=== PATIENT | female | born 1995 | race Caucasian/White ===

== ENCOUNTER 2018-07-31 11:10 | Emergency (ER) | payer OTHER ==
[2018-07-31 11:25] VITALS: BP 112/73; PULSE 97; TEMP 98.6; BMI 18.7
--- NOTE | 2018-07-31 11:34 | PDOC ---
History of Present Illness - General Chief Complaint: Pain Stated Complaint: LEFT ABDOMINAL PAIN Time Seen by Provider: 07/31/18 11:32 - History of Present Illness Initial Comments: 07/31/18 15:04 Chief complaint: Left upper quadrant pain History of present illness: Patient is a resident of an eating disorder facility being treated for anorexia. She entered the facility 5 days ago. A routine blood test yesterday revealed an elevated lipase of 500. Today she developed left upper quadrant pain, and because of the elevated amylase, was sent for evaluation of possible pancreatitis. She states that she has had elevated pancreatic enzymes in the past without experiencing acute pancreatitis Review of systems: No nausea, vomiting, diarrhea, fever or chills, hematemesis, melena, bloody stool. No chest pain, shortness of breath, urinary tract symptoms , vaginal bleeding or discharge. Past medical history: Anorexia/bulimia for many years with one episode of hypokalemia in the distant past.. GERD, on Prevacid, but no other GI disease or surgery Social history: Denies tobacco alcohol or nonprescription drugs. Eating disorder has been present for many years Family history: Reviewed and noncontributory Physical exam: Alert oriented 3 well-developed well-nourished no acute distress cheerful and cooperative. Does not appear to be experiencing extreme abdominal pain Afebrile, vital signs normal No pallor or icterus. HEENT clear Neck supple without bruit mass or nodes Chest clear with full breath sounds bilaterally, no wheezes rales or rhonchi CV S1 and S2 normal without murmur rub or gallop pulses full and symmetric no JVD or edema no bruits regular Abdomen nondistended. Bowel sounds normal. Soft without mass or organomegaly. There is mild tenderness to deep palpation in the left upper quadrant, but no significant tenderness in the epigastrium, right upper quadrant, or lower abdomen. Neurological intact Extremities no CCE Skin clear, no rash, adequate turgor and wet mucous membranes Impression: Elevated lipase most likely due to anorexia/bulimia, no sign of acute pancreatitis. Abdominal pain is likely an exacerbation of GERD or hyperacidity/dyspepsia Plan: Labs and ultrasound. Further evaluation treatment depending on results. Past History - Past Medical History Allergies/Adverse Reactions: Allergies Allergy/AdvReac Type Severity Reaction Status Date / Time No Known Allergies Allergy Unverified 07/31/18 11:11 Home Medications: Ambulatory Orders Aripiprazole [Abilify -] 2 mg PO HS 07/31/18 Fluvoxamine Maleate [Luvox -] 200 mg PO HS 07/31/18 Lansoprazole [Prevacid] 30 mg PO DAILY 07/31/18 COPD: No GI Disorders: Yes (GERD, ANOREXIA/PURGE) Psychiatric Problems: Yes (ANXIETY DEPRESSION) - Suicide/Smoking/Psychosocial Hx Smoking History: Never smoked Information on smoking cessation initiated: No Hx Alcohol Use: No Drug/Substance Use Hx: No *Physical Exam - Vital Signs Last Vital Signs Temp Pulse Resp BP Pulse Ox 98.6 F 97 H 16 112/73 100 07/31/18 11:11 07/31/18 11:11 07/31/18 11:11 07/31/18 11:11 07/31/18 11:11 Moderate Sedation - Procedure Monitoring Vital Signs: Procedure Monitoring Vital Signs Temperature 98.6 F 07/31/18 11:11 Pulse Rate 97 H 07/31/18 11:11 Respiratory Rate 16 07/31/18 11:11 Blood Pressure 112/73 07/31/18 11:11 O2 Sat by Pulse Oximetry (%) 100 07/31/18 11:11 ED Treatment Course - LABORATORY CBC & Chemistry Diagram: 07/31/18 12:05 07/31/18 12:05 Medical Decision Making - Medical Decision Making 07/31/18 15:10 The CBC and chemistries are normal except for elevated lipase of 377. Ultrasound of the gallbladder, liver, and pancreas show no significant abnormalities Most likely etiology of the patient's pain is hyperacidity/dyspepsia. Elevated amylase is likely due to underlying eating disorder. Patient is not uncomfortable, in no acute pain at present, discharged with counselor to follow up with GI specialist as directed, or return to the emergency room if there is fever, increased pain, nausea, vomiting. *DC/Admit/Observation/Transfer Diagnosis at time of Disposition: Elevated pancreatic enzyme - Discharge Dispostion Disposition: HOME Condition at time of disposition: Stable Decision to Admit order: No - Referrals - Patient Instructions Additional Instructions: Ultrasound of the gallbladder, liver, and pancreas is normal. Pancreatitis is highly unlikely. Elevations in your pancreatic enzymes appear to be due to your underlying eating disorder. Continue your present therapy. Adequate fluids, and good nutrition. See primary physician in approximately 2 weeks for repeat lipase and abdominal examination. Return to ER if pain becomes more severe or is accompanied by nausea, intractable vomiting, or fever. The pain you're experiencing now is most likely from the stomach, either spasm or hyperacidity. It is unlikely that the pancreas is inflamed, as noted above. Continue your antacid medication as directed. If pain persists or becomes more severe, you should see photographic process screen maker for further evaluation. - Post Discharge Activity
[2018-07-31] MEDS ORDERED: SODIUM CHLORIDE 1,000 ML IV STA (11:35)
[2018-07-31 12:03] LABS: PH,URINE 8.5 (4.5-8); URINE APPEARANCE Cloudy; URINE BILIRUBIN Negative (NEGATIVE); URINE COLOR Yellow; URINE GLUCOSE (UA) Negative (NEGATIVE); URINE KETONE Negative (NEGATIVE); URINE LEUK ESTERASE Negative (NEGATIVE); URINE NITRITE Negative (NEGATIVE); URINE PROTEIN Negative (NEGATIVE); URINE UROBILINOGEN 0.2 (0.2-1.0)
[2018-07-31 12:09] LABS: BASO % 1.2 % (0-2.0); EOS % 1.6 % (0-4.5); HEMOGLOBIN 11.6 GM/dl (10.7-15.3); LYMPH % 30.6 % (8-40); MCHC 33.3 g/dl (32.0-36.0); MEAN CELL VOLUME 90.1 fl (80-96); MEAN PLT VOLUME 8.7 fl (7.5-11.1); MONO % 9.3 % (3.8-10.2); NEUT % 57.3 % (42.8-82.8); PLATELET COUNT 196 K/MM3 (134-434); RBC 3.88 M/mm3 (3.60-5.2); RDW 12.8 % (11.6-15.6)
[2018-07-31 12:18] LABS: HCG,QUALITATIVE URINE Negative
[2018-07-31 12:25] LABS: ALBUMIN 3.5 g/dl (3.4-5.0); ALK PHOS 45 U/L (45-117); ANION GAP 4 MMOL/L (8-16); BILIRUBIN,TOTAL 0.3 mg/dl (0.2-1); BLOOD UREA NITROGEN 13 mg/dl (7-18); CALCIUM 8.4 mg/dl (8.5-10); CHLORIDE 107 mmol/L (98-107); CO2 24 mmol/L (21-32); CREATININE 0.6 mg/dl (0.55-1.3); GLUCOSE,RANDOM 92 mg/dl (74-106); POTASSIUM 3.9 mmol/L (3.5-5.1); SGOT/AST 17 U/L (15-37); SGPT/ALT 11 U/L (13-61); SODIUM 135 mmol/L (136-145); TOT PROT 5.5 g/dl (6.4-8.2)
[2018-07-31] MEDS ORDERED: FAMOTIDINE 20 MG/50 ML IVPB 20 MG/50 ML MG IVPB ONE ×2 (12:33→12:37)
[2018-07-31 13:57] LABS: LIPASE 377 U/L (73-393)
== END 2018-07-31 14:22 | disposition home or self-care (01) ==
LOC: FER 11:10
PROC: 3E033GC Introduction of Other Therapeutic Substance into Peripheral Vein, Percutaneous Approach (ICD-10-PCS; principal; 2018-07-31)
PROC: 3E0337Z Introduction of Electrolytic and Water Balance Substance into Peripheral Vein, Percutaneous Approach (ICD-10-PCS; 2018-07-31)
DX: R94.7 Abnormal results of other endocrine function studies (principal)
CPT/HCPCS: 36415; 76705-TC; 80053; 81003; 83690; 84703; 85025; 99282-25; J7030